=== PATIENT | female | born 2000 | race Caucasian/White ===

== ENCOUNTER 2021-11-02 09:19 | Outpatient (CLI) | payer OTHER, SELFPAY ==
--- NOTE | ~2021-11-02 | CT_ITS ---
EXAMINATION: CT sinus wo con EXAM DATE: 11/02/2021 09:37 INDICATION: Nasal septal deviation. TECHNIQUE: Spiral CT of the sinuses was acquired in the axial plane. Coronal and sagittal reformatte d images were also reviewed. The dose-length product (DLP) for this examination was 298.59 mGy-cm. Iterative reconstruction (ASIR) was used as dose reduction technique. There is no prior study for co mparison. FINDINGS: The sinuses are normally developed. The sinuses are well aerated. The ostiomeatal unit s are patent. There is no sinus wall thickening. There is moderate leftward nasal septal deviat ion. The mastoid air cells and middle ears are well aerated. External auditory canals are patent. The orbits and visualized soft tissues are unremarkable. IMPRESSION: Moderate leftward nasal septal deviation. Reviewed, dictated and finalized at location A.
== END 2021-11-02 09:20 ==
PROVIDERS: PCP Family Medicine; Visit Provider Otolaryngology
DX: J34.2 Deviated nasal septum (principal)
CPT/HCPCS: 70486